=== PATIENT | male | born 1950 | race Caucasian/White ===

== ENCOUNTER 2021-02-01 15:26 | Emergency (ER) | payer MEDICARE, MEDICAID ==
[~2021-02-01] VITALS: Ht 160 cm; Wt 45.5 kg
[~2021-02-01 15:26] MED LIST: ACET-2247 GT; ASCO500 PO; BISA10SU11 PR; CHOL400T56 PO; DOCU-275 PO; FAMO20 PO; FOLI-130 PO; GLYC1TAB27 PO; HYDR-4723 GT; LEVO750P7 IV; METO25 PO; MOM30 GT; THIA100T80 PO; TRAM50TA4 PO; ZINC220C14 PO
[2021-02-01 18:17] LABS: HEMATOCRIT 37.3 % (41-53); HEMOGLOBIN 11.6 g/dL (13.5-17.5); MEAN CORPUSCULAR HEMOGLOBIN 27.8 pg (26.0-34.0); MEAN CORPUSCULAR HGB CONC 31.1 G/dL (31.0-37.0); MEAN CORPUSCULAR VOLUME 90 fL (80-100); PLATELET COUNT (AUTO) 406 K/uL (150-450); RED BLOOD CELL COUNT(AUTO) 4.16 MIL/uL (4.50-5.90); RED CELL DISTRIBUTION WIDTH 21.2 % (11.5-14.5)
[2021-02-01 18:27] LABS: ANION GAP 10 mmol/L (8-16); CALCIUM, TOTAL 9.1 mg/dL (8.8-10.5); CARBON DIOXIDE 30 mmol/L (22-29); CHLORIDE 101 mmol/L (98-107); CREATININE 0.41 mg/dL (0.60-1.30); GLOMERULAR FILTR. RATE CALC > 60 mL/min (>60); GLUCOSE,RANDOM 102 mg/dL (70-110); POTASSIUM 4.1 mmol/L (3.5-5.1); SODIUM SERUM 141 mmol/L (136-145); UREA NITROGEN, BLOOD 21 mg/dL (7-18)
[2021-02-01 18:33] LABS: ALANINE AMINOTRANSFERASE 38 U/L (12-78); ALBUMIN 2.3 g/dL (3.4-5.0); ALKALINE PHOSPHATASE 75 U/L (46-116); ASPARTATE AMINOTRANSFERASE 25 U/L (15-37); BILIRUBIN,TOTAL 0.5 mg/dL (0.1-1.0); LIPASE 102 U/L (73-393)
[2021-02-01 18:39] LABS: LACTIC ACID 1.2 mmol/L (0.4-2.0)
[2021-02-01 18:49] LABS: B-TYPE NATRIURETIC PEPTIDE 28 pg/mL (0-100)
[2021-02-01 19:21] LABS: BAND NEUTROPHILS % (MANUAL) 9 % (0-5); BASOPHILS % (MANUAL) 1 % (0-2); LYMPHOCYTES % (MANUAL) 26 % (22-44); METAMYELOCYTES % 1 % (0-0); MONOCYTES % (MANUAL) 5 % (2-9); MYELOCYTES % 2 % (0-0); PLATELET MORPHOLOGY COMMENT GIANT PLTS PRESENT; SEGMENTED NEUTROPHILS % 56 % (40-70)
[2021-02-01] MEDS ORDERED: ACETAMINOPHEN 325 MG TABLET PO PRN (19:30)
[2021-02-01] MEDS ORDERED: ONDANSETRON HCL 4 MG/2 ML VIAL IVP PRN (19:30)
[2021-02-01] MEDS ORDERED: 0.9% SODIUM CHLORIDE 10 ML SYRINGE IVP PRN (19:30)
[2021-02-01 20:38] LABS: APPEARANCE,URINE TURBID (CLEAR); BILIRUBIN,URINE NEGATIVE (NEGATIVE); GLUCOSE, URINE (UA) NEGATIVE (NEGATIVE); KETONES,URINE NEGATIVE (NEGATIVE); LEUKOCYTE ESTERASE ,URINE LARGE (NEGATIVE); NITRATE,URINE NEGATIVE (NEGATIVE); OCCULT BLOOD,URINE LARGE (NEGATIVE); PH,URINE 7.5 (5.0-8.0); PROTEIN,URINE SEE CONFIRM (NEGATIVE)
[2021-02-01 20:55] LABS: SULFOSALICYLIC ACID,URINE 2+ (Negative)
[2021-02-01 20:59] LABS: BACTERIA,URINE Many /HPF (None Seen); RBC,URINE 26-50 /HPF (0-2); WBC,URINE 26-50 /HPF (0-5)
[2021-02-01 21:00] LABS: SQUAMOUS EPITHELIAL CELL,UR None Seen /LPF (None Seen)
[2021-02-01 21:01] LABS: AMORPHOUS SEDIMENT,UR Few /LPF (None Seen); CALCIUM OXALATE CRYSTALS,UR Rare /LPF (None Seen); YEAST,URINE Rare /HPF (None Seen)
[2021-02-01 21:19] VITALS: BP 160/88
== END 2021-02-01 22:15 ==
LOC: EMS 15:30
DX: J18.9 Pneumonia, unspecified organism (principal); F84.0 Autistic disorder; L89.153 Pressure ulcer of sacral region, stage 3; I48.91 Unspecified atrial fibrillation; K21.9 Gastro-esophageal reflux disease without esophagitis; I10 Essential (primary) hypertension; Z43.1 Encounter for attention to gastrostomy; Z88.5 Allergy status to narcotic agent; Z88.8 Allergy status to other drugs, medicaments and biological substances
CPT/HCPCS: 51702; 71045; 80053; 81001; 81002; 83605; 83690; 83880; 84484; 85025; 87040; 87086; 93005; 99285; 36415-L1; 36415-TC

== ENCOUNTER 2021-02-10 15:08 | Emergency (ER) | payer MEDICARE, MEDICAID ==
[~2021-02-10] VITALS: Ht 170.2 cm; Wt 52.3 kg
[2021-02-10 18:22] VITALS: BP 133/78
== END 2021-02-10 18:54 | disposition home or self-care (01) ==
LOC: EMS 15:08
DX: T83.038A Leakage of other urinary catheter, initial encounter (principal); Y84.6 Urinary catheterization as the cause of abnormal reaction of the patient, or of later complication, without mention of misadventure at the time of the procedure; Y73.8 Miscellaneous gastroenterology and urology devices associated with adverse incidents, not elsewhere classified
CPT/HCPCS: 51702; 99284; Z7502

== ENCOUNTER 2021-03-14 14:48 | Inpatient (IN) | payer MEDICARE, MEDICAID ==
[~2021-03-14] VITALS: Ht 152.4 cm; Wt 42.4 kg
[~2021-03-14 14:48] MED LIST changes: +ASCO500 GT; -ASCO500 PO; +CHOL400T56 GT; -CHOL400T56 PO; -DOCU-275 PO; +DSSL GT; +FAMO20 GT; -FAMO20 PO; +FOLI-130 GT; -FOLI-130 PO; +GLYC1TAB27 GT; -GLYC1TAB27 PO; +HEPA500018 SQ; -LEVO750P7 IV; +METO25 GT; -METO25 PO; +NAPH1PAC2 GT; +THIA100T80 GT; -THIA100T80 PO; +TRAM50TA4 GT; -TRAM50TA4 PO; +ZINC220C14 GT; -ZINC220C14 PO; +ZOSY3375FZ IV
[2021-03-14] MEDS ORDERED: PANTOPRAZOLE SODIUM 40 MG/VIAL IVP ONE (15:30)
[2021-03-14 16:15] LABS: HEMATOCRIT 34.7 % (41-53); MEAN CORPUSCULAR HEMOGLOBIN 28.5 pg (26.0-34.0); MEAN CORPUSCULAR HGB CONC 31.6 G/dL (31.0-37.0); MEAN CORPUSCULAR VOLUME 90 fL (80-100); PLATELET COUNT (AUTO) 427 K/uL (150-450); RED BLOOD CELL COUNT(AUTO) 3.85 MIL/uL (4.50-5.90); RED CELL DISTRIBUTION WIDTH 23.1 % (11.5-14.5)
[2021-03-14] MEDS ORDERED: SODIUM CHLORIDE 0.9% 1,000 ML IV ONE (16:15)
[2021-03-14 16:20] LABS: ANION GAP 12 mmol/L (8-16); CALCIUM, TOTAL 9.5 mg/dL (8.8-10.5); CARBON DIOXIDE 22 mmol/L (22-29); CHLORIDE 109 mmol/L (98-107); CREATININE 0.72 mg/dL (0.60-1.30); GLOMERULAR FILTR. RATE CALC > 60 mL/min (>60); GLUCOSE,RANDOM 152 mg/dL (70-110); POTASSIUM 4.6 mmol/L (3.5-5.1); SODIUM SERUM 143 mmol/L (136-145); UREA NITROGEN, BLOOD 39 mg/dL (7-18)
[2021-03-14 16:23] LABS: PROTHROMBIN TIME 10.7 SEC (9.4-11.6)
[2021-03-14 16:24] LABS: COVID AG,FIA SOURCE NASOPHARYNGEAL
[2021-03-14 16:29] LABS: ALANINE AMINOTRANSFERASE 90 U/L (12-78); ALBUMIN 2.4 g/dL (3.4-5.0); ALKALINE PHOSPHATASE 58 U/L (46-116); ASPARTATE AMINOTRANSFERASE 56 U/L (15-37); BILIRUBIN,TOTAL 0.6 mg/dL (0.1-1.0); TOTAL PROTEIN, SERUM 7.3 g/dL (6.4-8.2)
[2021-03-14] MEDS ORDERED: AZITHROMYCIN 500 MG/NS 250 ML IV ONE (16:30)
[2021-03-14] MEDS ORDERED: PIPERACILLIN/TAZO 3.375 GM/D5W 50 ML IV ONE (16:30)
[2021-03-14 16:41] LABS: B-TYPE NATRIURETIC PEPTIDE 142 pg/mL (0-100)
[2021-03-14 16:50] LABS: BAND NEUTROPHILS % (MANUAL) 19 % (0-5); LYMPHOCYTES % (MANUAL) 2 % (22-44); MONOCYTES % (MANUAL) 2 % (2-9); MYELOCYTES % 1 % (0-0); SEGMENTED NEUTROPHILS % 76 % (40-70)
[2021-03-14] MEDS ORDERED: SODIUM CHLORIDE 0.9% 1,250 ML IV ONE ×2 (17:00→19:00)
[2021-03-14] MEDS ORDERED: PANTOPRAZOLE SODIUM 80 MG in SODIUM CHLORIDE 0.9% 100 ML IV SCH (17:00)
[2021-03-14] MEDS ORDERED: VANCOMYCIN HCL 1 GM/D5% WATER 200 ML IV ONE (17:00)
[2021-03-14] MEDS ORDERED: ACETAMINOPHEN 650 MG RECTAL SUPPOSITORY PR ONE (17:00)
[2021-03-14] MEDS ORDERED: 0.9% SODIUM CHLORIDE 10 ML SYRINGE IVP PRN (17:00)
[2021-03-14] MEDS ORDERED: ACETAMINOPHEN 325 MG TABLET PO PRN (17:00)
[2021-03-14] MEDS ORDERED: ONDANSETRON HCL 4 MG/2 ML VIAL IVP PRN (17:00)
[2021-03-14 17:01] LABS: OCCULT BLOOD STOOL SINGLE ONLY NEGATIVE (NEGATIVE)
[2021-03-14] MEDS ORDERED: SODIUM CHLORIDE 0.9% 250 ML IV ONE (17:01)
[2021-03-14 17:24] LABS: INFLUENZA TYPE A NEGATIVE FOR TYPE A (NEGATIVE); INFLUENZA TYPE B NEGATIVE FOR TYPE B (NEGATIVE)
[2021-03-14 17:34] LABS: ABG A-A DIFF O2 184.5 mmHg (10-20.0); ABG BASE EXCESS -5.5 mmol/L (-2.0-3.0); ABG CARBOXYHEMOGLOBIN 0.3 % (0.0-1.5); ABG METHEMOGLOBIN 0.3 % (0.0-1.5); ABG OXYGEN CONTENT 9.2 mL/dL (15.0-23.0); ABG OXYHEMOGLOBIN 62.7 % (94.0-100.0); ABG PCO2 32 mmHg (35-45); ABG PH 7.399 (7.35-7.450); ABG TOTAL HEMOGLOBIN 10.4 G/dL (12.0-18.0); SOURCE, BLOOD GAS ARTERIAL; TEMPERATURE, FAHRENHEIT, BG 99.6 FAHREN (96.0-98.6)
[2021-03-14 17:35] LABS: PO2, ARTERIAL BG 34.5 mmHg (75.0-83.0)
[2021-03-14 17:37] LABS: ABG OXYGEN SATURATION 63.1 % (95.0-98.0); SITE, BLOOD GAS RT BRACHIAL
[2021-03-14] MEDS ORDERED: TraMADol HCL 50 MG TABLET GT PRN (18:45)
[2021-03-14] MEDS ORDERED: D5W IV SCH (18:45)
[2021-03-14] MEDS ORDERED: TAZO IV SCH (18:45)
[2021-03-14] MEDS ORDERED: MAGNESIUM HYDROXIDE SUSPENSION 30 ML UDCUP GT PRN (18:45)
[2021-03-14] MEDS ORDERED: PIPERACILLIN IV SCH (18:45)
[2021-03-14] MEDS ORDERED: BISACODYL 10 MG RECTAL RECTAL SUPPOSITORY PR PRN (18:45)
[2021-03-14 20:32] LABS: ABG A-A DIFF O2 554.4 mmHg (10-20.0); ABG BASE EXCESS -4.3 mmol/L (-2.0-3.0); ABG CARBOXYHEMOGLOBIN 0.2 % (0.0-1.5); ABG HCO3 21.4 mmol/L (22.0-26.0); ABG METHEMOGLOBIN 0.2 % (0.0-1.5); ABG OXYGEN CONTENT 14.7 mL/dL (15.0-23.0); ABG OXYGEN SATURATION 98.3 % (95.0-98.0); ABG OXYHEMOGLOBIN 97.9 % (94.0-100.0); ABG PCO2 33 mmHg (35-45); ABG PH 7.409 (7.35-7.450); ABG TOTAL HEMOGLOBIN 10.5 G/dL (12.0-18.0); PO2, ARTERIAL BG 126.5 mmHg (75.0-83.0); SOURCE, BLOOD GAS ARTERIAL; TEMPERATURE, FAHRENHEIT, BG 98.1 FAHREN (96.0-98.6)
[2021-03-14 20:33] LABS: O2 DEVICE,BLOOD GAS NON REBREATHER (ROOM AIR); SITE, BLOOD GAS LFT RADIAL
[2021-03-14] MEDS: DOCUSATE SODIUM 100 MG/10 ML LIQUID UDCUP GT SCH (21:00)
[2021-03-14] MEDS: SODIUM,POTASSIUM PHOSPHATES POWDER PACKET GT SCH (21:00)
[2021-03-14] MEDS: GLYCOPYRROLATE 1 MG TABLET GT SCH (21:00)
[2021-03-14] MEDS: METOPROLOL TARTRATE 25 MG TABLET GT SCH (21:00)
[2021-03-14 21:45] VITALS: BP 151/73
[2021-03-14] MEDS ORDERED: ACETAMINOPHEN 650 MG RECTAL SUPPOSITORY PR PRN (22:15)
[2021-03-14] MEDS: HYDROCODONE/ACETAMINOPHEN 5-325 MG TABLET GT PRN (23:44)
[2021-03-14] MEDS: PIPERACILLIN/TAZO 3.375 GM/D5W 50 ML IV SCH (23:44)
[2021-03-14] MEDS: HEPARIN SODIUM,PORCINE 5,000 UNITS/ML VIAL SQ SCH (23:51)
[2021-03-15] MEDS ORDERED: MAGNESIUM SULFATE 2 GM, MVI, ADULT NO.1 WITH VIT K 10 ML, THIAMINE 100 MG, FOLIC ACID 1... IV ONE ×5 (01:00)
[2021-03-15 01:17] VITALS: BP 121/85
[2021-03-15] MEDS: PANTOPRAZOLE SODIUM 80 MG in SODIUM CHLORIDE 0.9% 100 ML IV SCH ×3 (03:30→23:16)
[2021-03-15] MEDS ORDERED: SODIUM CHLORIDE 0.9% 250 ML IV ONE ×2 (03:34→18:18)
[2021-03-15 04:25] VITALS: BP 133/68
[2021-03-15] MEDS: PIPERACILLIN/TAZO 3.375 GM/D5W 50 ML IV SCH ×4 (05:31→23:16)
[2021-03-15 07:13] LABS: ALBUMIN 1.8 g/dL (3.4-5.0); BILIRUBIN,TOTAL 0.7 mg/dL (0.1-1.0); CALCIUM, TOTAL 9.1 mg/dL (8.8-10.5); CREATININE 2.03 mg/dL (0.60-1.30); HEMATOCRIT 30.2 % (41-53); HEMOGLOBIN 9.4 g/dL (13.5-17.5); MEAN CORPUSCULAR HGB CONC 31.1 G/dL (31.0-37.0); MEAN CORPUSCULAR VOLUME 93 fL (80-100); PLATELET COUNT (AUTO) 361 K/uL (150-450); RED BLOOD CELL COUNT(AUTO) 3.24 MIL/uL (4.50-5.90); RED CELL DISTRIBUTION WIDTH 23.8 % (11.5-14.5); TOTAL PROTEIN, SERUM 6.1 g/dL (6.4-8.2)
[2021-03-15 07:18] LABS: POTASSIUM 4.5 mmol/L (3.5-5.1)
[2021-03-15 07:50] VITALS: BP 152/75
[2021-03-15 08:08] LABS: BAND NEUTROPHILS % (MANUAL) 15 % (0-5); LYMPHOCYTES % (MANUAL) 11 % (22-44); MONOCYTES % (MANUAL) 1 % (2-9); SEGMENTED NEUTROPHILS % 73 % (40-70)
[2021-03-15] MEDS: DOCUSATE SODIUM 100 MG/10 ML LIQUID UDCUP GT SCH ×2 (08:13→22:01)
[2021-03-15] MEDS: METOPROLOL TARTRATE 25 MG TABLET GT SCH ×2 (08:14→22:01)
[2021-03-15] MEDS: FOLIC ACID 1 MG TABLET GT SCH (08:14)
[2021-03-15] MEDS: HEPARIN SODIUM,PORCINE 5,000 UNITS/ML VIAL SQ SCH ×3 (08:14→23:16)
[2021-03-15] MEDS: FAMOTIDINE 20 MG TABLET GT SCH (08:14)
[2021-03-15] MEDS: ASCORBIC ACID 500 MG TABLET GT SCH (08:14)
[2021-03-15] MEDS: ZINC SULFATE 220 MG CAPSULE GT SCH (08:14)
[2021-03-15] MEDS: SODIUM,POTASSIUM PHOSPHATES POWDER PACKET GT SCH ×2 (08:14→22:02)
[2021-03-15] MEDS: GLYCOPYRROLATE 1 MG TABLET GT SCH ×2 (08:14→22:01)
[2021-03-15] MEDS: THIAMINE 100 MG TABLET GT SCH (08:14)
[2021-03-15] MEDS: CHOLECALCIFEROL (VIT D3) 400 UNITS [10 MCG] TABLET GT SCH (08:14)
[2021-03-15] MEDS: HYDROCODONE/ACETAMINOPHEN 5-325 MG TABLET GT PRN (11:06)
[2021-03-15 11:48] LABS: ABG A-A DIFF O2 616.2 mmHg (10-20.0); ABG BASE EXCESS -7.9 mmol/L (-2.0-3.0); ABG CARBOXYHEMOGLOBIN 0.3 % (0.0-1.5); ABG HCO3 18.8 mmol/L (22.0-26.0); ABG METHEMOGLOBIN 0.3 % (0.0-1.5); ABG OXYHEMOGLOBIN 91.4 % (94.0-100.0); ABG PCO2 29 mmHg (35-45); ABG PH 7.391 (7.35-7.450); ABG TOTAL HEMOGLOBIN 10.1 G/dL (12.0-18.0); SITE, BLOOD GAS LFT RADIAL; SOURCE, BLOOD GAS ARTERIAL; TEMPERATURE, FAHRENHEIT, BG 98.6 FAHREN (96.0-98.6)
[2021-03-15 11:49] LABS: O2 DEVICE,BLOOD GAS NON REBREATHER (ROOM AIR)
[2021-03-15 12:15] VITALS: BP 147/69
[2021-03-15 15:17] VITALS: BP 140/78
[2021-03-15 19:50] VITALS: BP 138/75
[2021-03-16] VITALS (7 sets, daily range): BP systolic 136–178; BP diastolic 72–85
[2021-03-16] MEDS: PIPERACILLIN/TAZO 3.375 GM/D5W 50 ML IV SCH ×4 (05:59→23:26)
[2021-03-16] MEDS: HYDROCODONE/ACETAMINOPHEN 5-325 MG TABLET GT PRN (06:00)
[2021-03-16 07:01] LABS: BASOPHILS % (AUTO) 0.1 % (0.0-2.0); EOSINOPHILS % (AUTO) 0.1 % (1.0-6.0); HEMATOCRIT 28.1 % (41-53); HEMOGLOBIN 8.8 g/dL (13.5-17.5); LYMPHOCYTES # (AUTO) 0.6 K/uL (1.0-4.8); MEAN CORPUSCULAR HEMOGLOBIN 28.9 pg (26.0-34.0); MEAN CORPUSCULAR HGB CONC 31.4 G/dL (31.0-37.0); MEAN CORPUSCULAR VOLUME 92 fL (80-100); MONOCYTES # (AUTO) 0.2 K/uL (0.1-1.0); MONOCYTES % (AUTO) 1.2 % (2.0-9.0); NEUTROPHILS # (AUTO) 19.2 K/uL (1.8-7.7); PLATELET COUNT (AUTO) 323 K/uL (150-450); RED BLOOD CELL COUNT(AUTO) 3.06 MIL/uL (4.50-5.90); RED CELL DISTRIBUTION WIDTH 23.6 % (11.5-14.5)
[2021-03-16 07:19] LABS: NEUTROPHILS % (AUTO) 95.6 % (40.0-70.0)
[2021-03-16 07:20] LABS: ALBUMIN 1.6 g/dL (3.4-5.0); BILIRUBIN,TOTAL 0.7 mg/dL (0.1-1.0); CREATININE 3.81 mg/dL (0.60-1.30); POTASSIUM 4.8 mmol/L (3.5-5.1); TOTAL PROTEIN, SERUM 6.2 g/dL (6.4-8.2)
[2021-03-16] MEDS: GLYCOPYRROLATE 1 MG TABLET GT SCH ×2 (08:04→20:32)
[2021-03-16] MEDS: ZINC SULFATE 220 MG CAPSULE GT SCH (08:04)
[2021-03-16] MEDS: ASCORBIC ACID 500 MG TABLET GT SCH (08:04)
[2021-03-16] MEDS: CHOLECALCIFEROL (VIT D3) 400 UNITS [10 MCG] TABLET GT SCH (08:04)
[2021-03-16] MEDS: HEPARIN SODIUM,PORCINE 5,000 UNITS/ML VIAL SQ SCH ×3 (08:04→23:26)
[2021-03-16] MEDS: SODIUM,POTASSIUM PHOSPHATES POWDER PACKET GT SCH ×2 (08:04→20:32)
[2021-03-16] MEDS: FAMOTIDINE 20 MG TABLET GT SCH (08:04)
[2021-03-16] MEDS: THIAMINE 100 MG TABLET GT SCH (08:04)
[2021-03-16] MEDS: DOCUSATE SODIUM 100 MG/10 ML LIQUID UDCUP GT SCH ×2 (08:05→20:33)
[2021-03-16] MEDS: METOPROLOL TARTRATE 25 MG TABLET GT SCH ×2 (08:05→20:32)
[2021-03-16] MEDS: FOLIC ACID 1 MG TABLET GT SCH (08:05)
[2021-03-16] MEDS: PANTOPRAZOLE SODIUM 80 MG in SODIUM CHLORIDE 0.9% 100 ML IV SCH (08:23)
[2021-03-16] MEDS ORDERED: MORPHINE SULFATE 2 MG/ML SYRINGE IVP ONE (16:45)
[2021-03-16] MEDS: DEXTROSE 5%-WATER 1,000 ML IV SCH (16:49)
[2021-03-16 17:03] LABS: ABG A-A DIFF O2 415.4 mmHg (10-20.0); ABG BASE EXCESS -7.2 mmol/L (-2.0-3.0); ABG CARBOXYHEMOGLOBIN 0.3 % (0.0-1.5); ABG HCO3 19.5 mmol/L (22.0-26.0); ABG METHEMOGLOBIN 0.3 % (0.0-1.5); ABG OXYGEN CONTENT 12.5 mL/dL (15.0-23.0); ABG OXYGEN SATURATION 88.5 % (95.0-98.0); ABG PCO2 24 mmHg (35-45); ABG PH 7.458 (7.35-7.450); ABG TOTAL HEMOGLOBIN 10.1 G/dL (12.0-18.0); PO2, ARTERIAL BG 57.1 mmHg (75.0-83.0); SOURCE, BLOOD GAS ARTERIAL; TEMPERATURE, FAHRENHEIT, BG 99.5 FAHREN (96.0-98.6)
[2021-03-16 17:04] LABS: O2 DEVICE,BLOOD GAS CANNULA (ROOM AIR); SITE, BLOOD GAS LFT RADIAL
[2021-03-17 00:25] VITALS: BP 137/75
[2021-03-17] MEDS: HYDROCODONE/ACETAMINOPHEN 5-325 MG TABLET GT PRN (01:05)
[2021-03-17 04:15] VITALS: BP 135/70
[2021-03-17] MEDS: PIPERACILLIN/TAZO 3.375 GM/D5W 50 ML IV SCH ×4 (05:27→23:53)
[2021-03-17 06:28] LABS: HEMATOCRIT 23.4 % (41-53); HEMOGLOBIN 7.5 g/dL (13.5-17.5); MEAN CORPUSCULAR HEMOGLOBIN 29.5 pg (26.0-34.0); MEAN CORPUSCULAR VOLUME 92 fL (80-100); PLATELET COUNT (AUTO) 220 K/uL (150-450); RED BLOOD CELL COUNT(AUTO) 2.54 MIL/uL (4.50-5.90); RED CELL DISTRIBUTION WIDTH 24.8 % (11.5-14.5)
[2021-03-17] MEDS: DEXTROSE 5%-WATER 1,000 ML IV SCH (06:33)
[2021-03-17 07:12] LABS: ALBUMIN 1.1 g/dL (3.4-5.0); BILIRUBIN,TOTAL 0.4 mg/dL (0.1-1.0); CALCIUM, TOTAL 7.1 mg/dL (8.8-10.5); CREATININE 4.9 mg/dL (0.60-1.30); POTASSIUM 3.3 mmol/L (3.5-5.1); TOTAL PROTEIN, SERUM 5.9 g/dL (6.4-8.2)
[2021-03-17 07:29] LABS: BAND NEUTROPHILS % (MANUAL) 21 % (0-5); LYMPHOCYTES % (MANUAL) 6 % (22-44); MONOCYTES % (MANUAL) 2 % (2-9); SEGMENTED NEUTROPHILS % 71 % (40-70)
[2021-03-17 08:00] VITALS: BP 156/72
[2021-03-17] MEDS: SODIUM,POTASSIUM PHOSPHATES POWDER PACKET GT SCH ×2 (08:38→21:00)
[2021-03-17] MEDS: DOCUSATE SODIUM 100 MG/10 ML LIQUID UDCUP GT SCH ×2 (08:38→21:07)
[2021-03-17] MEDS: METOPROLOL TARTRATE 25 MG TABLET GT SCH ×2 (08:38→21:07)
[2021-03-17] MEDS: FAMOTIDINE 20 MG TABLET GT SCH (08:38)
[2021-03-17] MEDS: HEPARIN SODIUM,PORCINE 5,000 UNITS/ML VIAL SQ SCH ×3 (08:38→23:54)
[2021-03-17] MEDS: FOLIC ACID 1 MG TABLET GT SCH (08:38)
[2021-03-17] MEDS: THIAMINE 100 MG TABLET GT SCH (08:39)
[2021-03-17] MEDS: ZINC SULFATE 220 MG CAPSULE GT SCH (08:39)
[2021-03-17] MEDS: GLYCOPYRROLATE 1 MG TABLET GT SCH ×2 (08:39→21:07)
[2021-03-17] MEDS: ASCORBIC ACID 500 MG TABLET GT SCH (08:39)
[2021-03-17] MEDS: CHOLECALCIFEROL (VIT D3) 400 UNITS [10 MCG] TABLET GT SCH (08:39)
[2021-03-17] MEDS ORDERED: SODIUM BICARBONATE [ADULT] 8.4% 50 MEQ/50 ML SYRINGE IVP ONE (09:30)
[2021-03-17] MEDS: SODIUM BICARBONATE 100 MEQ in DEXTROSE 5%-WATER 1,000 ML IV SCH ×2 (10:31→23:53)
[2021-03-17 11:27] LABS: INR 1.3 (0.9-1.1); PROTHROMBIN TIME 13.2 SEC (9.4-11.6)
[2021-03-17 11:38] LABS: ABG A-A DIFF O2 458.7 mmHg (10-20.0); ABG CARBOXYHEMOGLOBIN 0.3 % (0.0-1.5); ABG HCO3 16.5 mmol/L (22.0-26.0); ABG METHEMOGLOBIN 0.3 % (0.0-1.5); ABG OXYHEMOGLOBIN 80.4 % (94.0-100.0); ABG PCO2 25 mmHg (35-45); ABG PH 7.374 (7.35-7.450); ABG TOTAL HEMOGLOBIN 9.7 G/dL (12.0-18.0); PO2, ARTERIAL BG 49.5 mmHg (75.0-83.0); SOURCE, BLOOD GAS ARTERIAL; TEMPERATURE, FAHRENHEIT, BG 98.6 FAHREN (96.0-98.6)
[2021-03-17 11:52] LABS: ABG OXYGEN SATURATION 80.9 % (95.0-98.0); O2 DEVICE,BLOOD GAS CANNULA (ROOM AIR); SITE, BLOOD GAS RT BRACHIAL
[2021-03-17 12:00] VITALS: BP 162/68
[2021-03-17] MEDS: MORPHINE SULFATE 2 MG/ML SYRINGE IVP PRN ×3 (12:27→21:08)
[2021-03-17] MEDS ORDERED: MORPHINE SULFATE 100 MG/NS/PF 100 ML IV PRN (15:45)
[2021-03-17 19:57] VITALS: BP 114/60
[2021-03-17 22:31] LABS: GLUCOMETER DEV NAME(LOC) 5S.2B; GLUCOSE,POINT OF CARE 155 MG/DL (70-110)
[2021-03-17 22:31] LABS: GLUCOMETER DEV NAME(LOC) 5S.2B; GLUCOSE,POINT OF CARE 128 MG/DL (70-110)
[2021-03-17 22:31] LABS: GLUCOMETER DEV NAME(LOC) 5S.2B; GLUCOSE,POINT OF CARE 170 MG/DL (70-110)
[2021-03-18] VITALS (7 sets, daily range): BP systolic 104–131; BP diastolic 54–68
[2021-03-18] MEDS: MORPHINE SULFATE 2 MG/ML SYRINGE IVP PRN ×4 (02:04→16:14)
[2021-03-18 05:21] LABS: HEMATOCRIT 28.9 % (41-53); HEMOGLOBIN 9.4 g/dL (13.5-17.5); MEAN CORPUSCULAR HEMOGLOBIN 29.1 pg (26.0-34.0); MEAN CORPUSCULAR HGB CONC 32.4 G/dL (31.0-37.0); MEAN CORPUSCULAR VOLUME 90 fL (80-100); PLATELET COUNT (AUTO) 268 K/uL (150-450); RED BLOOD CELL COUNT(AUTO) 3.21 MIL/uL (4.50-5.90); RED CELL DISTRIBUTION WIDTH 23.8 % (11.5-14.5)
[2021-03-18] MEDS: PIPERACILLIN/TAZO 3.375 GM/D5W 50 ML IV SCH ×3 (05:39→18:00)
[2021-03-18 05:51] LABS: ALBUMIN 1.1 g/dL (3.4-5.0); BILIRUBIN,TOTAL 0.4 mg/dL (0.1-1.0); CALCIUM, TOTAL 8.1 mg/dL (8.8-10.5); CREATININE 5.87 mg/dL (0.60-1.30); TOTAL PROTEIN, SERUM 5.5 g/dL (6.4-8.2)
[2021-03-18 05:54] LABS: GLUCOMETER DEV NAME(LOC) 5S.2B; GLUCOSE,POINT OF CARE 122 MG/DL (70-110)
[2021-03-18 07:12] LABS: BAND NEUTROPHILS % (MANUAL) 23 % (0-5); LYMPHOCYTES % (MANUAL) 6 % (22-44); MONOCYTES % (MANUAL) 1 % (2-9); SEGMENTED NEUTROPHILS % 70 % (40-70)
[2021-03-18] MEDS: METOPROLOL TARTRATE 25 MG TABLET GT SCH ×2 (07:50→21:13)
[2021-03-18] MEDS: THIAMINE 100 MG TABLET GT SCH (07:50)
[2021-03-18] MEDS: DOCUSATE SODIUM 100 MG/10 ML LIQUID UDCUP GT SCH ×2 (07:50→21:13)
[2021-03-18] MEDS: FOLIC ACID 1 MG TABLET GT SCH (07:51)
[2021-03-18] MEDS: SODIUM,POTASSIUM PHOSPHATES POWDER PACKET GT SCH ×2 (07:51→21:13)
[2021-03-18] MEDS: GLYCOPYRROLATE 1 MG TABLET GT SCH ×2 (07:51→21:13)
[2021-03-18] MEDS: HEPARIN SODIUM,PORCINE 5,000 UNITS/ML VIAL SQ SCH ×2 (07:51→16:00)
[2021-03-18] MEDS: FAMOTIDINE 20 MG TABLET GT SCH (07:51)
[2021-03-18] MEDS: ASCORBIC ACID 500 MG TABLET GT SCH (08:22)
[2021-03-18] MEDS: ZINC SULFATE 220 MG CAPSULE GT SCH (08:22)
[2021-03-18] MEDS: CHOLECALCIFEROL (VIT D3) 400 UNITS [10 MCG] TABLET GT SCH (08:22)
[2021-03-18 20:38] LABS: GLUCOMETER DEV NAME(LOC) 5S.2B; GLUCOSE,POINT OF CARE 139 MG/DL (70-110)
[2021-03-18 20:38] LABS: GLUCOMETER DEV NAME(LOC) 5S.2B; GLUCOSE,POINT OF CARE 143 MG/DL (70-110)
[2021-03-18 20:39] LABS: GLUCOMETER DEV NAME(LOC) 5S.2B; GLUCOSE,POINT OF CARE 167 MG/DL (70-110)
[2021-03-18] MEDS: SODIUM BICARBONATE 100 MEQ in DEXTROSE 5%-WATER 1,000 ML IV SCH (21:12)
[2021-03-18] MEDS: HYDROCODONE/ACETAMINOPHEN 5-325 MG TABLET GT PRN (21:13)
[2021-03-19] MEDS: HEPARIN SODIUM,PORCINE 5,000 UNITS/ML VIAL SQ SCH ×2 (01:23→08:02)
[2021-03-19] MEDS: PIPERACILLIN/TAZO 3.375 GM/D5W 50 ML IV SCH ×2 (01:23→05:30)
[2021-03-19 05:18] VITALS: BP 132/64
[2021-03-19] MEDS: MORPHINE SULFATE 2 MG/ML SYRINGE IVP PRN ×2 (05:30→10:53)
[2021-03-19] MEDS ORDERED: SODIUM CHLORIDE 0.9% 100 ML ONE (05:38)
[2021-03-19] MEDS: SODIUM BICARBONATE 100 MEQ in DEXTROSE 5%-WATER 1,000 ML IV SCH (06:07)
[2021-03-19] MEDS: FOLIC ACID 1 MG TABLET GT SCH (08:01)
[2021-03-19] MEDS: ASCORBIC ACID 500 MG TABLET GT SCH (08:01)
[2021-03-19] MEDS: DOCUSATE SODIUM 100 MG/10 ML LIQUID UDCUP GT SCH (08:01)
[2021-03-19] MEDS: SODIUM,POTASSIUM PHOSPHATES POWDER PACKET GT SCH (08:01)
[2021-03-19] MEDS: GLYCOPYRROLATE 1 MG TABLET GT SCH (08:01)
[2021-03-19] MEDS: CHOLECALCIFEROL (VIT D3) 400 UNITS [10 MCG] TABLET GT SCH (08:02)
[2021-03-19] MEDS: THIAMINE 100 MG TABLET GT SCH (08:02)
[2021-03-19] MEDS: FAMOTIDINE 20 MG TABLET GT SCH (08:02)
[2021-03-19] MEDS: ZINC SULFATE 220 MG CAPSULE GT SCH (08:02)
[2021-03-19] MEDS: METOPROLOL TARTRATE 25 MG TABLET GT SCH (08:02)
[2021-03-19 08:05] VITALS: BP 107/50
== END 2021-03-19 10:55 | disposition hospice, home (50) | DRG 871 ==
LOC: EMS 14:48 → 5N 19:45 → 6N 03-18 18:50
PROVIDERS: ADMIT Hospitalist; ATTEND Hospitalist
DX: A41.9 Sepsis, unspecified organism (principal); J69.0 Pneumonitis due to inhalation of food and vomit; E43 Unspecified severe protein-calorie malnutrition; N17.0 Acute kidney failure with tubular necrosis; J96.91 Respiratory failure, unspecified with hypoxia; E87.0 Hyperosmolality and hypernatremia; F84.0 Autistic disorder; K92.2 Gastrointestinal hemorrhage, unspecified; Z68.1 Body mass index [BMI] 19.9 or less, adult; I10 Essential (primary) hypertension; Z66 Do not resuscitate; Z74.01 Bed confinement status; E87.6 Hypokalemia; Z20.822 Contact with and (suspected) exposure to COVID-19; I48.91 Unspecified atrial fibrillation; K21.9 Gastro-esophageal reflux disease without esophagitis; Z88.8 Allergy status to other drugs, medicaments and biological substances
CPT/HCPCS: 36600; 71045; 71250; 76770; 80053; 82271; 82805; 82962; 83605; 83880; 84145; 84484; 85025; 85610; 85730; 86850; 86900; 86901; 87040; 87081; 87804; 93005; 94799; 99291; C9113; J0456; J1644; J2270; J2543; J3370; J3411; J3475; J3490; J7030; J7050; J7060; 36415-L1; 36415-TC; U0003